=== PATIENT | female | born 1990 | race Caucasian/White ===

== ENCOUNTER 2023-02-01 18:54 | Emergency (ER) | payer OTHER, SELFPAY ==
[2023-02-01 19:02] VITALS: BP 135/82; PULSE 100; RESP 18; TEMP 36.4; O2SAT 100; BMI 27.8
--- NOTE | 2023-02-01 19:40 | ED_ITS ---
HPI - General Adult General Date Seen: 02/01/23 Chief complaint: Back Injury/Pain Stated complaint: Autoimmune pain in sacrum Time Seen by Provider: 02/01/23 19:08 Source: patient Mode of arrival: ambulatory Limitations: no limitations History of Present Illness HPI narrative: Patient is a 32-year-old female who was diagnosed with ankylosing spondylitis about eight years ago. She takes ixekizumab injections monthly. She uses meloxicam, tizanidine, tramadol on a daily basis. She occasionally gets flare- ups of her condition and uses methylprednisolone. Her current flare-up is been going on for the past for five days. The 4 mg steroid dose has not helped. Pain is keeping her awake at night. It radiates down both legs to mid thigh. She will be establishing care with Dr. Rodriguez but could not get in for appointment for another month. I did verify her in the [employer] system. Related Data Home Medications Medication Instructions Recorded Confirmed cyanocobalamin (vitamin B-12) 1,000 mcg IM 02/01/23 1,000 mcg/mL injection solution ixekizumab 80 mg/mL subcutaneous mg subcut 02/01/23 auto-injector (Taltz Autoinjector) meloxicam 15 mg tablet 15 mg PO DAILY PRN 02/01/23 02/01/23 methylprednisolone 4 mg tablet 4 mg PO DAILY PRN 02/01/23 02/01/23 (Medrol) ondansetron 4 mg disintegrating 4 - 8 mg PO DAILY PRN 02/01/23 02/01/23 tablet tizanidine 4 mg tablet 4 mg PO BID PRN 02/01/23 02/01/23 tramadol 50 mg tablet 50 mg PO QID PRN pain 02/01/23 02/01/23 Allergies Allergy/AdvReac Type Severity Reaction Status Date / Time amoxicillin Allergy Severe Verified 02/01/23 18:59 Review of Systems Narrative: Review of systems is as outlined above otherwise noted to be negative. PFSH PFSH Social History Smoking Status: Never smoker How often do you have a drink containing alcohol: never AUDIT-C Alcohol total score: 0 Non-prescribed substance use: denies use Exam Narrative: Exam Narrative: Vitals noted. HEENT: Conjunctiva clear. Neck is supple without adenopathy, thyromegaly, carotid bruit. Lungs: Clear to auscultation in all [place]. No wheezes, rales, rhonchi. Heart: Regular rate and rhythm without murmur. Abdomen: Soft and nontender. No guarding, rigidity, rebound. Bowel sounds are normal. No palpable masses. Extremities: No cyanosis or edema. Good distal pulses. She has some tenderness in the left SI joint. There is some pain on the right as well but to a lesser degree. No muscle spasms. Skin: No abnormalities noted of the exposed skin. Neurologic: Awake, alert, fully oriented. Neurologic exam is nonfocal. Const: Vital Signs, click to edit/add: Vital Signs - 24 hr 02/01/23 19:02 Temperature 97.6 F Pulse Rate [Pulse Oximeter] 100 Respiratory Rate 18 Blood Pressure [Ri t Upper Arm] 135/82 Pulse Oximetry 100 Oxygen Delivery Me thod Room Air Course Course Hospital Course: Patient seen and examined. Her symptoms are consistent with a flare-up of her ankylosing spondylitis. She has responded well to steroid in the past but does have some palpitation issues with prednisone. She is offered a Depo-Medrol injection and would prefer that. She is given 80 mg IM dose of Depo-Medrol. Vital Signs Vital signs: Initial Vital Signs Temperature 97.6 F 02/01/23 19:02 Temperature Source Temporal Artery Scan 02/01/23 19:02 Pulse Rate 100 02/01/23 19:02 Respiratory Rate 18 02/01/23 19:02 Blood Pressure 135/82 02/01/23 19:02 Blood Pressure Mean 99 02/01/23 19:02 Blood Pressure Position Sitting 02/01/23 19:02 Pulse Oximetry 100 02/01/23 19:02 Oxygen Delivery Method Room Air 02/01/23 19:02 Vital Signs Temperature 97.6 F 02/01/23 19:02 Pulse Rate 100 02/01/23 19:02 Respiratory Rate 18 02/01/23 19:02 Blood Pressure 135/82 02/01/23 19:02 Pulse Oximetry 100 02/01/23 19:02 Oxygen Delivery Method Room Air 02/01/23 19:02 Temperature 97.6 F 02/01/23 19:02 Pulse Rate 100 02/01/23 19:02 Respiratory Rate 18 02/01/23 19:02 Blood Pressure 135/82 02/01/23 19:02 Pulse Oximetry 100 02/01/23 19:02 Oxygen Delivery Method Room Air 02/01/23 19:02 Discharge Plan Discharge Clinical Impression: Chronic pain Ankylosing spondylitis Qualifiers: Ankylosing spondylitis location: sacral region Qualified Code(s): M45.8 - Ankylosing spondylitis sacral and sacrococcygeal region Patient Disposition: Home, Self-Care Condition: Improved Instructions: Ankylosing Spondylitis (ED) Additional Instructions: Continue current medication. You can increase her tramadol dose up to 50-100 mg every 6 hours as needed for short time. Continue meloxicam and tizanidine. Call to move up your appointment with your PCP. This can be scheduled as an ER follow-up visit and they should work you in next week. Prescriptions: No Action tizanidine 4 mg tablet 4 mg PO BID PRN tramadol 50 mg tablet 50 mg PO QID PRN (Reason: pain) cyanocobalamin (vitamin B-12) 1,000 mcg/mL solution 1,000 mcg IM ondansetron 4 mg tablet,disintegrating 4 - 8 mg PO DAILY PRN Taltz Autoinjector 80 mg/mL auto-injector subcut methylprednisolone [Medrol] 4 mg tablet 4 mg PO DAILY PRN meloxicam 15 mg tablet 15 mg PO DAILY PRN Follow Up/Referrals: Eileen Lay MD [Referring] - Joslyn Rodriguez DO [Primary Care Provider] - Stand Alone [facility] Instructions
[2023-02-01] MEDS: methylPREDNISolone acetate 80 MG/ML INJ INJECTION (19:48)
== END 2023-02-01 20:00 | disposition home or self-care (01) ==
LOC: ED 19:40
PROVIDERS: Emergency Provider Family Medicine; PCP Family Medicine
DX: M45.8 Ankylosing spondylitis sacral and sacrococcygeal region (principal); G89.29 Other chronic pain
CPT/HCPCS: 96372; 99282; 99284; J1040